=== PATIENT | female | born 1995 | race African-American/Black ===

== ENCOUNTER 2018-03-03 12:03 | Emergency (ER) | payer SELFPAY ==
[~2018-03-03] VITALS: Ht 165.1 cm; Wt 65.0 kg
[2018-03-03] MEDS ORDERED: IBUPROFEN 800 MG TABLET PO ONE (13:15)
[2018-03-03 13:31] VITALS: BP 109/78
== END 2018-03-03 13:43 | disposition home or self-care (01) ==
LOC: EMS 12:04
DX: H60.12 Cellulitis of left external ear (principal)

== ENCOUNTER 2019-11-04 13:55 | Emergency (ER) | payer MEDICAID ==
[~2019-11-04] VITALS: Ht 167.6 cm; Wt 56.8 kg
[2019-11-04 14:01] VITALS: BP 115/65
[2019-11-04] MEDS ORDERED: IBUPROFEN 600 MG TABLET PO ONE (14:45)
[2019-11-04] MEDS ORDERED: ACETAMINOPHEN 325 MG TABLET PO ONE (14:45)
[2019-11-04] MEDS ORDERED: PENICILLIN G BENZATHINE LA 1,200,000 UNITS/2 ML SYRINGE IM ONE (15:15)
== END 2019-11-04 16:02 | disposition home or self-care (01) ==
LOC: EMS 13:59
DX: J02.0 Streptococcal pharyngitis (principal); R50.9 Fever, unspecified; R13.10 Dysphagia, unspecified; Z20.828 Contact with and (suspected) exposure to other viral communicable diseases
CPT/HCPCS: 81025; 87430; 96372; 99283; J0561; U0003

== ENCOUNTER 2020-03-07 12:48 | Emergency (ER) | payer MEDICAID ==
[~2020-03-07] VITALS: Ht 167.6 cm; Wt 59.1 kg
[2020-03-07] MEDS ORDERED: IBUP-2071 PO (13:03)
[2020-03-07 16:11] VITALS: BP 124/62
== END 2020-03-07 16:13 | disposition home or self-care (01) ==
LOC: EMS 12:48
DX: U07.1 COVID-19 (principal); R50.9 Fever, unspecified; M79.10 Myalgia, unspecified site
CPT/HCPCS: 99283; U0003

== ENCOUNTER 2020-03-26 11:05 | Emergency (ER) | payer MEDICAID ==
[~2020-03-26] VITALS: Ht 175.3 cm; Wt 65.9 kg
[~2020-03-26 11:05] MED LIST: IBUP-2071 PO
[2020-03-26 13:23] VITALS: BP 118/76
== END 2020-03-26 13:25 | disposition home or self-care (01) ==
LOC: EMS 11:07
DX: U07.1 COVID-19 (principal); J02.9 Acute pharyngitis, unspecified; R09.81 Nasal congestion
CPT/HCPCS: 87430; 99283; U0003

== ENCOUNTER 2020-04-21 14:56 | Emergency (ER) | payer MEDICAID ==
[~2020-04-21] VITALS: Ht 167.6 cm; Wt 61.4 kg
[2020-04-21 14:58] VITALS: BP 134/96
== END 2020-04-21 15:53 | disposition home or self-care (01) ==
LOC: EMS 14:56
DX: Z20.828 Contact with and (suspected) exposure to other viral communicable diseases (principal)
CPT/HCPCS: 99283; U0003